=== PATIENT | male | born 1980 | race Hispanic/Latino ===

== ENCOUNTER 2018-12-16 16:21 | Emergency (ER) | payer SELFPAY ==
[2018-12-16] MEDS ORDERED: HALOPERIDOL LACTATE 5 MG/ML VIAL ONE (16:45)
[2018-12-16 16:54] LABS: BASOPHILS % (AUTO) 0.5 % (0.0-5.0); HEMATOCRIT 44.9 % (42-54); LYMPHOCYTES % (AUTO) 11.6 % (21.0-51.0); MEAN CORPUSCULAR HEMOGLOBIN 29.8 pg (27.0-33.0); MEAN CORPUSCULAR HGB CONC 33.8 g/dL (32.0-36.0); MEAN CORPUSCULAR VOLUME 88.3 fL (79-99); MONOCYTES % (AUTO) 11.4 % (3.0-13.0); NEUTROPHILS % (AUTO) 76.5 % (40.0-77.0); PLATELET COUNT (AUTO) 237 K/uL (130-400); RED BLOOD CELL COUNT(AUTO) 5.08 MIL/uL (4.50-6.20); RED CELL DISTRIBUTION WIDTH 12.9 % (11.0-15.5); WHITE BLOOD COUNT (AUTO) 7.7 K/uL (4.8-10.8)
[2018-12-16 17:04] LABS: CREATININE 1.2 mg/dL (0.5-1.5); POTASSIUM 3.7 mmol/L (3.5-5.1)
[2018-12-16 17:08] LABS: ALBUMIN 4.3 g/dL (3.5-5.0); BILIRUBIN,TOTAL 0.8 mg/dL (0.2-1.0); TOTAL PROTEIN, SERUM 8.1 g/dL (6.0-8.3)
== END 2018-12-16 17:58 | disposition home or self-care (01) ==
LOC: EDH 16:21
DX: F12.10 Cannabis abuse, uncomplicated (principal); R10.13 Epigastric pain; R11.2 Nausea with vomiting, unspecified; F14.10 Cocaine abuse, uncomplicated
CPT/HCPCS: 36415; 80053; 83690; 85025; 96372; 99284; J1630

== ENCOUNTER 2018-12-17 11:36 | Observation (INO) | payer SELFPAY ==
[~2018-12-17] VITALS: Ht 185.4 cm; Wt 95.3 kg
[2018-12-17 11:50] LABS: BASOPHILS % (AUTO) 0.5 % (0.0-5.0); HEMATOCRIT 47.3 % (42-54); LYMPHOCYTES % (AUTO) 20.7 % (21.0-51.0); MEAN CORPUSCULAR HEMOGLOBIN 31.2 pg (27.0-33.0); NEUTROPHILS % (AUTO) 61.8 % (40.0-77.0); PLATELET COUNT (AUTO) 230 K/uL (130-400); RED BLOOD CELL COUNT(AUTO) 5.31 MIL/uL (4.50-6.20); RED CELL DISTRIBUTION WIDTH 13.2 % (11.0-15.5); WHITE BLOOD COUNT (AUTO) 9.1 K/uL (4.8-10.8)
[2018-12-17] MEDS ORDERED: DiphenhydrAMINE HCL 50 MG/ML VIAL ONE (12:02)
[2018-12-17] MEDS ORDERED: FAMOTIDINE/PF 20 MG/2 ML VIAL IV ONE (12:03)
[2018-12-17 12:23] LABS: CREATININE 1.3 mg/dL (0.5-1.5); POTASSIUM 3.5 mmol/L (3.5-5.1)
[2018-12-17 12:28] LABS: ALBUMIN 4.4 g/dL (3.5-5.0); TOTAL PROTEIN, SERUM 8.3 g/dL (6.0-8.3)
[2018-12-17] MEDS ORDERED: ONDANSETRON HCL 4 MG/2 ML VIAL ONE (13:52)
[2018-12-17] MEDS ORDERED: MORPHINE SULFATE 2 MG/ML 1ML SYG ONE (13:53)
[2018-12-17] MEDS ORDERED: LORAZEPAM 2 MG/ML 1 ML VIAL ONE (15:21)
[2018-12-17 15:39] LABS: BILIRUBIN,URINE Negative (NEGATIVE); COLOR,URINE Yellow (YELLOW); GLUCOSE, URINE (UA) Negative (NEGATIVE); KETONES,URINE >=80 mg/dL (NEGATIVE); LEUKOCYTE ESTERASE ,URINE Negative (NEGATIVE); NITRATE,URINE Negative (NEGATIVE); OCCULT BLOOD,URINE Negative (NEGATIVE); PH,URINE 5.5 (5.0-8.0); PROTEIN,URINE Negative (NEGATIVE)
[2018-12-17] MEDS ORDERED: LORAZEPAM 2 MG/ML 1 ML VIAL IVP PRN (15:45)
[2018-12-17] MEDS ORDERED: PROMETHAZINE HCL 25 MG/ML 1ML AMPULE IVPB PRN (16:00)
[2018-12-17 16:30] VITALS: BP 125/60
[2018-12-17 16:38] LABS: APPEARANCE,URINE CLEAR (CLEAR); BACTERIA,URINE Few /HPF (None Seen); RBC,URINE 0-1 /HPF (0-1); SQUAMOUS EPITHELIAL CELL,UR Rare /HPF (0-2); WBC,URINE 0-1 /HPF (0-1)
--- NOTE | 2018-12-17 18:11 | NUR ---
ADMISSION PATIENT RECEIVED FROM ER, PER REPORT PATIENT WAS GIVEN MULTIPLE PAIN MEDICATION FOR SEVERE PAIN, RECEIVED MORPHINE, PHENERGAN, BENADRYL AND LORAZEPAM IV PRIOR TO ARRIVAL, PATIENT IS AROUSABLE HOWEVER VERY SLEEPY, STATES HE WANTS TO REST, DECLINED ADMISSION INTERVIEW AT THIS TIME. NO SIGNS OF DISTRESS, UNABLE TO FULLY ASSESS WILL CONTINUE TO MONITOR
[2018-12-17 19:25] VITALS: BP 113/63
[2018-12-17] MEDS: FAMOTIDINE/PF 20 MG/2 ML VIAL IV SCH (20:26)
[2018-12-17] MEDS: SODIUM CHLORIDE 0.9% 1000ML 1,000 ML IV SCH (20:26)
[2018-12-17 23:10] VITALS: BP 148/66
[2018-12-18 03:15] VITALS: BP 123/70
[2018-12-18 05:53] LABS: CREATININE 1.1 mg/dL (0.5-1.5); POTASSIUM 3.7 mmol/L (3.5-5.1)
[2018-12-18 08:00] VITALS: BP 130/78
[2018-12-18] MEDS: SODIUM CHLORIDE 0.9% 1000ML 1,000 ML IV SCH (08:00)
[2018-12-18] MEDS: FAMOTIDINE/PF 20 MG/2 ML VIAL IV SCH (08:57)
[2018-12-18] MEDS ORDERED: ENOXAPARIN SODIUM 40 MG/0.4 ML SYRINGE SQ SCH (09:00)
[2018-12-18 11:14] VITALS: BP 131/76
--- NOTE | 2018-12-18 15:00 | NUR ---
DC PER PATIENT WAS TOLD BY MD LAST NIGHT, HE WAS SUFFERING FROM MARIJUANA INDUCED, CYLCLIC VOMITING SYNDROME AND NEEDS TO STOP SMOKING MARIJUANA, POSSIBLE DC TODAY, PATIENT STATES HE NO LONGER HAS NAUSEA AND VOMITING AND WOULD LIKE TO GO HOME. EXPLAINED DR NEEDS TO SEE HIM THIS AFTERNOON TO DC HIM, PATIENT STATES HE NO LONGER WANTS TO WAIT AND WOULD LIKE TO "SIGN HIMSELF OUT", PT IS ANXIOUS ACCOMPANIED BY PARENTS AND SIGNIFICANT OTHER, AMA FORM SIGNED. DR AYERS INFORMED. IV CATHETER REMOVED, INTACT, NO SIGNS OF DISTRESS, WALKED OUT ACCOMPANIED BY FAMILY.
== END 2018-12-18 14:50 | disposition left against medical advice (07) ==
LOC: EDH 11:36 → EDHIP 11:37 → EEVIPCON 11:37 → 4BH 15:45
PROVIDERS: ADMIT Family Medicine; ATTEND Family Medicine
DX: G43.A0 Cyclical vomiting, in migraine, not intractable (principal); F12.20 Cannabis dependence, uncomplicated
CPT/HCPCS: 36415 ×2; 80048; 80053; 81001; 82550; 83690; 84484; 85025; 93005; 96361 ×2; 96374; 96376; 99284; G0378 ×27; J1200; J2060; J2405; J3490 ×3; J7030; J1650

== ENCOUNTER 2020-03-20 10:04 | Emergency (ER) | payer OTHER ==
[~2020-03-20 10:04] MED LIST: ONDA4TAB4 PO
[2020-03-20] MEDS ORDERED: ONDANSETRON HCL 4 MG/2 ML VIAL ONE (10:17)
[2020-03-20 11:04] LABS: BASOPHILS % (AUTO) 0.9 % (0.0-5.0); EOSINOPHILS % (AUTO) 4.1 % (0.0-8.0); HEMATOCRIT 44.2 % (42-54); LYMPHOCYTES % (AUTO) 13.8 % (21.0-51.0); MEAN CORPUSCULAR HEMOGLOBIN 29.9 pg (27.0-33.0); MEAN CORPUSCULAR HGB CONC 34.4 g/dL (32.0-36.0); MEAN CORPUSCULAR VOLUME 86.8 fL (79-99); MONOCYTES % (AUTO) 8.2 % (3.0-13.0); NEUTROPHILS % (AUTO) 72.7 % (40.0-77.0); PLATELET COUNT (AUTO) 232 K/uL (130-400); RED BLOOD CELL COUNT(AUTO) 5.09 MIL/uL (4.50-6.20); RED CELL DISTRIBUTION WIDTH 12.5 % (11.0-15.5); WHITE BLOOD COUNT (AUTO) 11.3 K/uL (4.8-10.8)
[2020-03-20 11:10] LABS: POTASSIUM 3.8 mmol/L (3.5-5.1)
[2020-03-20 11:14] LABS: ALBUMIN 3.7 g/dL (3.5-5.0); BILIRUBIN,TOTAL 0.5 mg/dL (0.2-1.0); TOTAL PROTEIN, SERUM 6.8 g/dL (6.0-8.3)
== END 2020-03-20 11:49 | disposition home or self-care (01) ==
LOC: EDH 10:04
DX: K52.9 Noninfective gastroenteritis and colitis, unspecified (principal); Z87.891 Personal history of nicotine dependence
CPT/HCPCS: 36415; 80053; 82150; 83690; 85025; 96361; 96374; 99283; J2405

== ENCOUNTER 2022-01-06 07:49 | Emergency (ER) | payer OTHER ==
[~2022-01-06] VITALS: Ht 190.5 cm; Wt 104.3 kg
[2022-01-06] MEDS ORDERED: PANTOPRAZOLE 40 MG/VIAL IVP ONE (08:00)
[2022-01-06] MEDS ORDERED: 0.9%NACL 1000ML 1,000 ML IV ONE (08:00)
[2022-01-06] MEDS ORDERED: ONDANSETRON 4MG INJ IVP ONE (08:00)
[2022-01-06 08:17] LABS: BASOPHILS % (AUTO) 0.9 % (0.0-5.0); EOSINOPHILS % (AUTO) 3.3 % (0.0-8.0); HEMATOCRIT 46.3 % (42-54); LYMPHOCYTES % (AUTO) 14.7 % (21.0-51.0); MEAN CORPUSCULAR HEMOGLOBIN 28.9 pg (27.0-33.0); MEAN CORPUSCULAR VOLUME 87.4 fL (79-99); MONOCYTES % (AUTO) 9.4 % (3.0-13.0); PLATELET COUNT (AUTO) 250 K/uL (130-400); RED CELL DISTRIBUTION WIDTH 12.6 % (11.0-15.5); WHITE BLOOD COUNT (AUTO) 13.3 K/uL (4.8-10.8)
[2022-01-06 08:39] LABS: ALBUMIN 3.6 g/dL (3.5-5.0); BILIRUBIN,TOTAL 0.5 mg/dL (0.2-1.0); CREATININE 1.1 mg/dL (0.5-1.5); POTASSIUM 3.7 mmol/L (3.5-5.1); TOTAL PROTEIN, SERUM 6.5 g/dL (6.0-8.3)
[2022-01-06 08:53] LABS: APPEARANCE,URINE Clear (CLEAR); BILIRUBIN,URINE Negative (NEGATIVE); COLOR,URINE Yellow (YELLOW); GLUCOSE, URINE (UA) Negative (NEGATIVE); KETONES,URINE Negative (NEGATIVE); LEUKOCYTE ESTERASE ,URINE Negative (NEGATIVE); NITRATE,URINE Negative (NEGATIVE); OCCULT BLOOD,URINE Negative (NEGATIVE); PH,URINE 7.5 (5.0-8.0); PROTEIN,URINE Negative (NEGATIVE); UROBILINOGEN,URINE 0.2 mg/dL (0.2-1.0)
[2022-01-06 09:00] LABS: AMPHET/METH SCREEN,URINE NEGATIVE (NEGATIVE); BARBITURATE SCREEN, URINE NEGATIVE (NEGATIVE); BENZODIAZEPINES SCREEN,URINE NEGATIVE (NEGATIVE); CANNABINOID SCREEN,URINE POSITIVE (NEGATIVE); COCAINE SCREEN,URINE POSITIVE (NEGATIVE); OPIATE SCREEN,URINE NEGATIVE (NEGATIVE); PHENCYCLIDINE SCREEN,URINE NEGATIVE (NEGATIVE)
[2022-01-06 09:53] LABS: BACTERIA,URINE Rare /HPF (None Seen); RBC,URINE 0-1 /HPF (0-1); SQUAMOUS EPITHELIAL CELL,UR Rare /HPF (0-2); WBC,URINE 0-1 /HPF (0-1)
[2022-01-06] MEDS ORDERED: LIDOCAINE HCL 2% VISCOUS 15 ML UDCUP PO ONE (10:30)
[2022-01-06] MEDS ORDERED: DICYCLOMINE HCL 10 MG/5 ML ML PO ONE (10:30)
[2022-01-06] MEDS ORDERED: PROMETHAZINE HCL 25 MG/ML 1ML AMPULE IM SCH (10:30)
[2022-01-06] MEDS ORDERED: PROMETHAZINE HCL 25 MG TABLET PO SCH (10:30)
[2022-01-06] MEDS ORDERED: MAG/ALUM/SIMETH 30 ML UDCUP PO ONE (10:30)
[2022-01-06] MEDS ORDERED: 0.9%NACL 1000ML 1,000 ML IV SCH (10:30)
[2022-01-06 10:59] VITALS: BP 150/88
[2022-01-06] MEDS ORDERED: ONDA4TAB10 PO (11:20)
== END 2022-01-06 11:52 | disposition home or self-care (01) ==
LOC: EDH 07:49
DX: F19.10 Other psychoactive substance abuse, uncomplicated (principal); R11.2 Nausea with vomiting, unspecified
CPT/HCPCS: 36415; 80053; 80305; 81001; 82550; 83690; 85025; 93005 ×2; 96361; 96372; 96374; 96375; 99284; C9113; J2405; J2550; J7030 ×2

== ENCOUNTER 2022-08-29 16:54 | Emergency (ER) | payer OTHER ==
[~2022-08-29] VITALS: Ht 190.5 cm; Wt 98.4 kg
[~2022-08-29 16:54] MED LIST changes: +ONDA4TAB10 PO
[2022-08-29 17:29] LABS: BASOPHILS % (AUTO) 0.6 % (0.0-5.0); EOSINOPHILS % (AUTO) 0.5 % (0.0-8.0); HEMATOCRIT 47.2 % (42-54); MEAN CORPUSCULAR HGB CONC 34.7 g/dL (32.0-36.0); MEAN CORPUSCULAR VOLUME 83.4 fL (79-99); MONOCYTES % (AUTO) 11.3 % (3.0-13.0); NEUTROPHILS % (AUTO) 70.2 % (40.0-77.0); PLATELET COUNT (AUTO) 294 K/uL (130-400); RED BLOOD CELL COUNT(AUTO) 5.66 MIL/uL (4.50-6.20); RED CELL DISTRIBUTION WIDTH 12.7 % (11.0-15.5); WHITE BLOOD COUNT (AUTO) 12.8 K/uL (4.8-10.8)
[2022-08-29 17:39] LABS: CREATININE 1.3 mg/dL (0.5-1.5); POTASSIUM 3.1 mmol/L (3.5-5.1)
[2022-08-29 17:44] LABS: TOTAL PROTEIN, SERUM 7.4 g/dL (6.0-8.3)
[2022-08-29] MEDS ORDERED: 0.9%NACL 1000ML 1,000 ML IV SCH (18:30)
[2022-08-29] MEDS ORDERED: ONDANSETRON 4MG INJ IVP ONE (18:30)
[2022-08-29 19:59] VITALS: BP 128/76
[2022-08-29] MEDS ORDERED: MAG/ALUM/SIMETH 30 ML UDCUP PO ONE (20:00)
[2022-08-29] MEDS ORDERED: LIDOCAINE HCL 2% VISCOUS 15 ML UDCUP PO ONE (20:00)
[2022-08-29] MEDS ORDERED: DICYCLOMINE HCL 10 MG/5 ML ML PO ONE (20:00)
== END 2022-08-29 20:02 | disposition home or self-care (01) ==
LOC: EDH 16:54
DX: K29.70 Gastritis, unspecified, without bleeding (principal)
CPT/HCPCS: 99284; 96374; 96361; 80053; 83690; 85025; 36415; J7030; J2405

== ENCOUNTER 2022-10-28 15:28 | Emergency (ER) | payer OTHER ==
[~2022-10-28] VITALS: Ht 188 cm; Wt 98.0 kg
[2022-10-28] MEDS ORDERED: MAG/ALUM/SIMETH 30 ML UDCUP PO ONE (16:30)
[2022-10-28] MEDS ORDERED: LIDOCAINE HCL 2% VISCOUS 15 ML UDCUP PO ONE (16:30)
[2022-10-28] MEDS ORDERED: LACTATED RINGERS 1000ML 1,000 ML IV ONE (16:30)
[2022-10-28] MEDS ORDERED: PANTOPRAZOLE 40 MG/VIAL IVP ONE (16:30)
[2022-10-28 16:34] LABS: BASOPHILS % (AUTO) 0.7 % (0.0-5.0); EOSINOPHILS % (AUTO) 0.1 % (0.0-8.0); HEMATOCRIT 44.1 % (42-54); LYMPHOCYTES % (AUTO) 6.4 % (21.0-51.0); MEAN CORPUSCULAR HEMOGLOBIN 29.4 pg (27.0-33.0); MEAN CORPUSCULAR HGB CONC 34.9 g/dL (32.0-36.0); MEAN CORPUSCULAR VOLUME 84.3 fL (79-99); MONOCYTES % (AUTO) 3.5 % (3.0-13.0); NEUTROPHILS % (AUTO) 88.8 % (40.0-77.0); PLATELET COUNT (AUTO) 265 K/uL (130-400); RED BLOOD CELL COUNT(AUTO) 5.23 MIL/uL (4.50-6.20); RED CELL DISTRIBUTION WIDTH 12.4 % (11.0-15.5); WHITE BLOOD COUNT (AUTO) 11.2 K/uL (4.8-10.8)
[2022-10-28 16:41] LABS: CREATININE 1.2 mg/dL (0.5-1.5); POTASSIUM 3.6 mmol/L (3.5-5.1)
[2022-10-28 16:43] LABS: AMPHET/METH SCREEN,URINE NEGATIVE (NEGATIVE); BARBITURATE SCREEN, URINE NEGATIVE (NEGATIVE); BENZODIAZEPINES SCREEN,URINE NEGATIVE (NEGATIVE); CANNABINOID SCREEN,URINE POSITIVE (NEGATIVE); COCAINE SCREEN,URINE POSITIVE (NEGATIVE); OPIATE SCREEN,URINE NEGATIVE (NEGATIVE); PHENCYCLIDINE SCREEN,URINE NEGATIVE (NEGATIVE)
[2022-10-28] MEDS ORDERED: PANT40SU PO (17:50)
[2022-10-28 17:53] VITALS: BP 140/64
== END 2022-10-28 18:01 | disposition home or self-care (01) ==
LOC: EDH 15:28
DX: K21.9 Gastro-esophageal reflux disease without esophagitis (principal); F14.10 Cocaine abuse, uncomplicated
CPT/HCPCS: 99285; 74176; 96374; 96361; 82550; 84484; 80053; 80305; 83690; 85025; 36415; 93005; J7120; C9113